=== PATIENT | male | born 1965 | race Caucasian/White ===

== ENCOUNTER 2018-06-27 10:09 | Emergency (ER) | payer BC, OTHER ==
[2018-06-27] MEDS ORDERED: LIDOCAINE 2% W/EPI 1:200,000 MPF 20 ML VIAL IM ONE (11:03)
--- NOTE | 2018-06-27 11:15 | EDPHYS ---
Physician Documentation [facility] Name: Lawrence Desir Age: 52 yrs Sex: Male : 1965 Arrival Date: 06/27/2018 Time: 10:12 Bed 19 Private MD: ED Physician Nina Diaz HPI: 06/27 10:47 This 52 yrs old Male presents to ER via Ambulatory with complaints of ma2 Laceration To Hand. 10:47 The patient has a laceration occurred at home. The laceration(s) is(are) located on the ma2 left hand. Onset: The symptoms/episode began/occurred suddenly, just prior to arrival. Associated signs and symptoms: Pertinent negatives: deformity, dizziness, heavy bleeding, loss of consciousness, numbness distal to injury, suspected foreign body. The patient has not experienced similar symptoms in the past. was cutting food with a knife accidently sustained laceration of left hand over palm . Historical: - Allergies: 10:33 No Known Allergies; aa5 - PMHx: 10:33 None; aa5 - PSHx: 10:33 Left knee; aa5 - Immunization history:: Last tetanus immunization: < 10 years ago. - Social history:: Smoking status: Patient uses tobacco products, smokes one-half pack cigarettes per day, Patient/guardian denies using alcohol, street drugs, The patient lives with family. - Ebola Screening: : No symptoms or risks identified at this time. - Family history:: not pertinent, pertinent for. - Hospitalizations: : No recent hospitalization is reported. ROS: 10:47 Constitutional: Negative for fever, chills, and weight loss, Cardiovascular: Negative ma2 for chest pain, palpitations, and edema, Respiratory: Negative for shortness of breath, cough, wheezing, and pleuritic chest pain. 10:47 Skin: Positive for ulceration, Negative for cellulitis, discoloration, erythema, hematoma, puncture, rash. 10:47 All other systems are negative. Exam: 10:47 Constitutional: This is a well developed, well nourished patient who is awake, alert, ma2 and in no acute distress. Head/Face: Normocephalic, atraumatic. Chest/axilla: Normal chest wall appearance and motion. Nontender with no deformity. No lesions are appreciated. Cardiovascular: Regular rate and rhythm with a normal S1 and S2. No gallops, murmurs, or rubs. Normal PMI, no JVD. No pulse deficits. Respiratory: Lungs have equal breath sounds bilaterally, clear to auscultation and percussion. No rales, rhonchi or wheezes noted. No increased work of breathing, no retractions or nasal flaring. Abdomen/GI: Soft, non-tender, with normal bowel sounds. No distension or tympany. No guarding or rebound. No evidence of tenderness throughout. MS/ Extremity: Pulses equal, no cyanosis. Neurovascular intact. Full, normal range of motion. 10:47 Skin: injury, road rash, avulsion laceration of left thenar, flap 3 cm, . 10:47 Skin: neurovascular intact . ma2 Vital Signs: 10:33 BP 135 / 102; Pulse 87; Resp 18 S; Temp 98.0(TE); Pulse Ox 95% on R/A; Weight 136.08 kg aa5 (R); Height 6 ft. 4 in. (193.04 cm) (R); Pain /10; 10:33 Body Mass Index 36.52 (136.08 kg, 193.04 cm) aa5 Laceration: 10:47 Wound Repair of 3cm ( 1.2in ) subcutaneous laceration to left hand. Skin/tissue flap ma2 noted.. Minimal bleeding noted.. Distal neuro/vascular/tendon intact. Anesthesia: Local anesthetic administered with 5 mls of 1% lidocaine w/ Epi. Wound prep: Extensive cleansing. Skin closed with 5 2-0 Prolene using simple sutures and sterile technique. Dressed with Neosporin, 4x4's, Kerlix. Patient tolerated well. MDM: 10:43 Patient medically screened. ma2 10:47 Differential diagnosis: superficial laceration. Differential diagnosis: no vascular or ma2 tendon injury, no cellultitis. Data reviewed: vital signs, nurses notes, EMS record. Counseling: I had a detailed discussion with the patient and/or guardian regarding: the historical points, exam findings, and any diagnostic results supporting the discharge/admit diagnosis, the presence of at least one elevated blood pressure reading (>120/80) during this emergency department visit, the need for outpatient follow up. Response to treatment: the patient's symptoms have mildly improved after treatment. Administered Medications: No medications were administered Disposition: 06/27/18 11:14 Discharged to Home. Impression: Unspecified open wound of left hand. - Condition is Stable. - Discharge Instructions: Laceration Care, Adult. - Prescriptions for Tylenol- Codeine #3 300-30 mg Oral Tablet - take 2 tablet by ORAL route every 6 hours As needed; 6 tablet. - Medication Reconciliation Form, Thank You Letter, Antibiotic Education, Prescription Opioid Use form. - Follow up: Private Physician; When: 48 Hours; Reason: Continuance of care. - Notes: remove sutures in 7-10 days Signatures: Reggie Stone, BRAIDED RUG MAKER BRAIDED RUG MAKER Stefanie Alvarez, RN RN aa5 Nina Diaz MD MD ma2 Corrections: (The following items were deleted from the chart) 11:17 11:14 06/27/2018 11:14 Discharged to Home. Impression: Laceration of superficial palmar ma2 arch of left hand. Condition is Stable. Discharge Instructions: Laceration Care, Adult. Prescriptions for Tylenol-Codeine #3 300-30 mg Oral Tablet - take 2 tablet by ORAL route every 6 hours As needed; 6 tablet. and Forms are Medication Reconciliation Form, Thank You Letter, Antibiotic Education, Prescription Opioid Use. Follow up: Private Physician; When: 48 Hours; Reason: Continuance of care. ma2 11:30 11:17 06/27/2018 11:14 Discharged to Home. Impression: Unspecified open wound of left em hand. Condition is Stable. Discharge Instructions: Laceration Care, Adult. Prescriptions for Tylenol-Codeine #3 300-30 mg Oral Tablet - take 2 tablet by ORAL route every 6 hours As needed; 6 tablet. and Forms are Medication Reconciliation Form, Thank You Letter, Antibiotic Education, Prescription Opioid Use. Follow up: Private Physician; When: 48 Hours; Reason: Continuance of care. ma2
--- NOTE | 2018-06-27 11:15 | ER ---
Nurse's Notes [facility] Name: Lawrence Desir Age: 52 yrs Sex: Male : 1965 Arrival Date: 06/27/2018 Time: 10:12 Bed 19 Private MD: Diagnosis: Unspecified open wound of left hand Presentation: 06/27 10:32 Presenting complaint: Patient states: "I cut my left hand about an hour ago". Dressing aa5 noted. Transition of care: patient was not received from another setting of care. Complicating Factors: There are no complicating factors for this patient. Onset of symptoms was June 27, 2018. Risk Assessment: Do you want to hurt yourself or someone else? Patient reports no desire to harm self or others. Initial Sepsis Screen: Does the patient meet any 2 criteria? No. Patient's initial sepsis screen is negative. Does the patient have a suspected source of infection? No. Patient's initial sepsis screen is negative. Care prior to arrival: None. 10:32 Method Of Arrival: Ambulatory aa5 10:32 Acuity: ERICA 4 aa5 Historical: - Allergies: 10:33 No Known Allergies; aa5 - PMHx: 10:33 None; aa5 - PSHx: 10:33 Left knee; aa5 - Immunization history:: Last tetanus immunization: < 10 years ago. - Social history:: Smoking status: Patient uses tobacco products, smokes one-half pack cigarettes per day, Patient/guardian denies using alcohol, street drugs, The patient lives with family. - Ebola Screening: : No symptoms or risks identified at this time. - Family history:: not pertinent, pertinent for. - Hospitalizations: : No recent hospitalization is reported. Screenin:00 Abuse screen: Denies threats or abuse. Nutritional screening: No deficits noted. em Tuberculosis screening: No symptoms or risk factors identified. Fall Risk None identified. Assessment: 11:00 General: Appears in no apparent distress. comfortable, Behavior is calm, cooperative. em Pain: Complains of pain in left hand Pain currently is 1 out of 10 on a pain scale. Neuro: Level of Consciousness is awake, alert, obeys commands, Oriented to person, place, time, situation. Cardiovascular: Patient's skin is warm and dry. Respiratory: Airway is patent Respiratory effort is even, unlabored, Respiratory pattern is regular, symmetrical. GI: Abdomen is flat. : No signs and/or symptoms were reported regarding the genitourinary system. Musculoskeletal: Range of motion: intact in all extremities. Injury Description: Laceration sustained to left hand is clean, 2.6 to 7.5 cm long, bleeding moderately, was sustained 30-60 minutes ago. 1-2 hours ago. is bleeding a small amount. Vital Signs: 10:33 BP 135 / 102; Pulse 87; Resp 18 S; Temp 98.0(TE); Pulse Ox 95% on R/A; Weight 136.08 kg aa5 (R); Height 6 ft. 4 in. (193.04 cm) (R); Pain 07/14; 10:33 Body Mass Index 36.52 (136.08 kg, 193.04 cm) aa5 ED Course: 10:12 Patient arrived in ED. as 10:32 Arm band placed on. aa5 10:33 Triage completed. aa5 10:43 Nina Diaz MD is Attending Physician. ma2 11:00 Patient has correct armband on for positive identification. Bed in low position. Call em light in reach. Adult w/ patient. 11:10 Assist provider with laceration repair on left hand that was between 2.6 to 7.5 cm em using chadd. Set up tray. Performed by Nina Diaz MD Dressed with Kerlix, Neosporin, Patient tolerated well. 11:26 Reggie Stone LVN is Primary Nurse. em 11:30 Patient did not have IV access during this emergency room visit. em Administered Medications: No medications were administered Outcome: 11:14 Discharge ordered by . ma 11:30 Discharged to home ambulatory, with family. em 11:30 Condition: good 11:30 Discharge instructions given to patient, Instructed on discharge instructions, follow up and referral plans. medication usage, Demonstrated understanding of instructions, follow-up care, medications, Prescriptions given X 1. 11:30 Patient left the ED. em Signatures: Reggie Stone LVN LVN em Roseann Rios Audri, RN RN aa5 Nina Diaz MD MD [facility] Corrections: (The following items were deleted from the chart) 11:30 10:00 General: Appears in no apparent distress. comfortable, Behavior is calm, em cooperative, em 11:30 10:00 Pain: Complains of pain in left hand Pain currently is 1 out of 10 on a pain em scale. em 10:00 Neuro: Level of Consciousness is awake, alert, obeys commands, Oriented to em person, place, time, situation, em 10:00 Cardiovascular: Patient's skin is warm and dry. em em 10:00 Respiratory: Airway is patent Respiratory effort is even, unlabored, Respiratory em pattern is regular, symmetrical, em 10:00 GI: Abdomen is flat, em em 10: : No signs and/or symptoms were reported regarding the genitourinary system. em em 10:00 Musculoskeletal: Range of motion: intact in all extremities, em em 10:00 Injury Description: Laceration sustained to left hand is clean, 2.6 to 7.5 cm em long, bleeding moderately, was sustained 30-60 minutes ago. 1-2 hours ago. is bleeding a small amount em
== END 2018-06-27 11:30 | disposition home or self-care (01) ==
LOC: ER 10:09
PROC: 0JQK0ZZ Repair Left Hand Subcutaneous Tissue and Fascia, Open Approach (ICD-10-PCS; principal; 2018-06-27)
DX: S61.412A Laceration without foreign body of left hand, initial encounter (principal); W26.0XXA Contact with knife, initial encounter; Y93.G9 Activity, other involving cooking and grilling; F17.210 Nicotine dependence, cigarettes, uncomplicated
CPT/HCPCS: 99283